=== PATIENT | female | born 1980 | race Asian ===

== ENCOUNTER 2025-02-19 01:12 | Day surgery (SDC) | payer BC, SELFPAY ==
[2025-02-06 15:07] VITALS: BMI 23.4
--- OUTSIDE RECORDS SUMMARY | 2025-02-19 01:15 | XMS_ITS | Clinical Summary ---
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 Role Phone Unavailable Primary Care Provider Unavailabl e Social History Tobacco Use Types Packs/Day Years Used Date Smoking Tobacco: Never Assessed Comments Unknown Sex and Gender Information Value Date Recorded Sex Assigned at Not on file Legal Sex Female 8:31 PM CDT Gender Identity Not on file Sexual Orientation Not on file Plan of Treatment Health Maintenance Due Date Last Done Comments Cervical Cancer Screening Pa p Smear (Age 30 to 64) Every 3 Years 1982 Annual Physical 1985 Hepatitis C 01/10/2000 DTaP, Tdap and Td Vaccines ( 1 - Tdap) 2001 Hepatitis B Vaccines (1 of 3 - 19+ 3-dose series) 2001 HPV Vaccines (1 - 3-dose SCD M series) 2009 Cervical Cancer Screening Pa p with HPV Testing (Age 30 to 64) Every 5 Years 01/10/2012 Cervical Cancer Screening with HPV 01/10/2012 Mammogram Screening 2022 COVID-19 Vaccine (2023-2 5 season) 2025 Meningococcal B Vaccine Aged Out No l onger eligible based on patient's age to complete this topic Meningococcal Vaccine Aged Out No fracisco angelica eligible based on patient's age to complete this topic Pneumococcal Vaccine: Pediat rics (0 to 5 Years) and At-Risk Patients (6 to 49 Years) Aged Out No longer eligible b ased on patient's age to complete this topic RSV Immunizations Under 20 Months Aged Out No longer eligible based on patient's age to complete this topic
--- OUTSIDE RECORDS SUMMARY | 2025-02-19 01:15 | XMS_ITS | Clinical Summary ---
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 Phone Unavailable Primary Care Provider Unavailabl e Social History Tobacco Use Types Packs/Day Years Used Date Smoking Tobacco: Never Assessed Comments Unknown Sex and Gender Information Value Date Recorded Sex Assigned at Not on file Legal Sex Female 11:58 PM CDT Gender Identity Not on file Sexual Orientation Not on file Plan of Treatment Health Maintenance Due Date Last Done Comments DTAP/TDAP/TD VACCINES (1 - Tdap) 2001 HEPATITIS B VACCINES (1 of 3 - 19+ 3-dose series) 06/2000 HPV/Cotest (21-29) 2003 HPV VACCINES (1 - 3-dose SCDM series) 2009 CERVICAL CANCER SCREENING 01/10/2012 HPV/Cotest (30-65) 01/10/2012 PAP SMEAR 01/10/2012 BREAST CANCER SCREENING 2022 INFLUENZA VACCINE (#1) 2025 Insurance [facility] BLUE ACCESS/TRUE BLUE PPO
[2025-02-19 09:08] VITALS: BP 104/69; PULSE 51; RESP 16; TEMP 36.4; O2SAT 100; BMI 23.4
[2025-02-19] MEDS: LACTATED RINGERS 1,000 ML 150 ML IV CONT (09:21)
--- NOTE | 2025-02-19 09:44 | WPDANESEPPF ---
Anes - Initial Pre Proc Eval Procedure: Operation Date: 02/19/25 10:00 Proposed Procedures p Diagnostic Colonoscopy - Satya Abreu MD Date/Time: 02/19/25 09:44 Surgeon: Satya Abreu MD Pre Op Diagnosis: Melena Patient Data Age: 45 Gender: F Height: 1.6 m Weight: 60 kg Last Vital Signs Temp 36.4 C L 02/19/25 09:08 Pulse 51 L 02/19/25 09:08 Resp 16 02/19/25 09:08 BP 104/69 02/19/25 09:08 Pulse Ox 100 02/19/25 09:08 O2 Del Method Room Air 02/19/25 09:08 Allergies Allergy/AdvReac Type Severity Reaction Status Date / Time No Known Allergies Allergy Verified 02/19/25 09:05 Home Medications ?Medication ?Instructions ?Recorded ?Confirmed ?Type escitalopram oxalate 10 mg tablet 10 mg PO DAILY 10/26/23 02/19/25 History guanfacine 2 mg tablet 2 mg PO DAILY 10/26/23 02/19/25 History hydroxyzine HCl 10 mg tablet 10 mg PO TID PRN anxiety 10/26/23 02/06/25 History tretinoin 0.05 % topical cream 1 applic topical QHS 10/26/23 02/06/25 History valacyclovir 1 gram tablet 1,000 mg PO Q12H 10/26/23 02/06/25 History cyclobenzaprine 5 mg tablet 5 mg PO DAILY PRN muscle spasms 11/14/24 02/06/25 History Patient hx anesthesia problems: none Family hx anesthesia problems: none Results Review: All pre-operative results and documents have been reviewed as part of the pre-operative evaluation. [facility] Past Medical History Medical History Acute anxiety Abnormal Pap smear of cervix 2012 Anxiety Encounter for IUD insertion mirena 02/11/2015 Surgical History Surgical History History of gynecologic surgery cyst removal from ovary and iud removal -2019 H/O breast augmentation H/O local excision of skin lesion mole remoed History of tubal ligation Family History Family History Father Diabetes mellitus Mother Diabetes mellitus Pancreas cancer Breast cancer, Onset Age: 70 Grandparent Cerebrovascular accident Social History Social History (Updated 11/14/24 @ 09:29 by Ankit Amaya MA) Smoking packs per day: 0.5 Smoking cigarettes per day: 10.0 Years smoked: 4 Smoking pack-years: 2.00 Smoking status: Former smoker Tobacco type: cigarettes Alcohol intake: current Alcohol use details: socially Substance use: never Substance use type: does not use Do You Feel Safe in your Home?: Yes Lack of Transportation: No Lack of Food: Never True Current Housing: I Have Housing Concerned About Future Housing: No Difficulty Paying Gas/Electric Bills: No Difficulty Paying for Meds: No Currently Unemployed: No Education: Bachelor's Degree Difficulty w/ Childcare or Family Care: No Living arrangements: with family Additional living arrangements comments: spouse and kids 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/Education: 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 Gender identity (if verbalized by the patient): Female Sexual Orientation (if Verbalized by the Patient): Straight or Heterosexual Spiritual care concerns: No Anes - Eval Final PreProcedure Day of Procedure 02/19/25 09:44 Patient weight: normal Heart: regular rate and rhythm Lungs: clear to auscultation and normal air movement Airway: Mallampati scale class 1 Neurological: alert and oriented Last oral intake: >/= 8 hours ASA classification: II Emergent: no Anesthetic plan: proceed Anesthesia type and monitoring: general GIVS and standard monitoring Results Review: All pre-operative results and documents have been reviewed as part of the pre-operative evaluation. Informed Consent: The patient's anesthetic plan and its attendant risks and benefits were discussed with the patient/family/POA. Questions were solicited and answers provided to the satisfaction of the patient/family/POA.
--- NOTE | 2025-02-19 09:49 | PM.HPGS ---
History of Present Illness History of Present Illness Consent: Risks, benefits, and alternatives have been discussed and questions answered. Patient agrees to proceed with procedure. Chief complaint: blood in stool Narrative: Pilar Murrell is a 45 year old female with blood in stool, last one about 8 years Review of Systems Review of Systems: All systems reviewed & are unremarkable except as noted in HPI and below PMFSH Past Medical History Medical History Acute anxiety Abnormal Pap smear of cervix 2013 Anxiety Encounter for IUD insertion mirena 02/11/2015 Surgical History Surgical History History of gynecologic surgery cyst removal from ovary and iud removal -2019 H/O breast augmentation H/O local excision of skin lesion mole remoed History of tubal ligation Family History Family History Father Diabetes mellitus Mother Diabetes mellitus Pancreas cancer Breast cancer, Onset Age: 70 Grandparent Cerebrovascular accident Social History Social History (Updated 11/14/24 @ 09:29 by Ankit Amaya MA) Smoking packs per day: 0.5 Smoking cigarettes per day: 10.0 Years smoked: 4 Smoking pack-years: 2.00 Smoking status: Former smoker Tobacco type: cigarettes Alcohol intake: current Alcohol use details: socially Substance use: never Substance use type: does not use Do You Feel Safe in your Home?: Yes Lack of Transportation: No Lack of Food: Never True Current Housing: I Have Housing Concerned About Future Housing: No Difficulty Paying Gas/Electric Bills: No Difficulty Paying for Meds: No Currently Unemployed: No Education: Bachelor's Degree Difficulty w/ Childcare or Family Care: No Living arrangements: with family Additional living arrangements comments: spouse and kids 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/Education: 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 Gender identity (if verbalized by the patient): Female Sexual Orientation (if Verbalized by the Patient): Straight or Heterosexual Spiritual care concerns: No Meds Home Medications and Allergies Home Medications ?Medication ?Instructions ?Recorded ?Confirmed ?Type escitalopram oxalate 10 mg tablet 10 mg PO DAILY 10/26/23 02/19/25 History guanfacine 2 mg tablet 2 mg PO DAILY 10/26/23 02/19/25 History hydroxyzine HCl 10 mg tablet 10 mg PO TID PRN anxiety 10/26/23 02/06/25 History tretinoin 0.05 % topical cream 1 applic topical QHS 10/26/23 02/06/25 History valacyclovir 1 gram tablet 1,000 mg PO Q12H 10/26/23 02/06/25 History cyclobenzaprine 5 mg tablet 5 mg PO DAILY PRN muscle spasms 11/14/24 02/06/25 History Allergies Allergy/AdvReac Type Severity Reaction Status Date / Time No Known Allergies Allergy Verified 02/19/25 09:05 Vital Signs Vital Signs - 24 hr 02/19/25 09:08 Temperature 97.5 F L Pulse Rate 51 L Respiratory Rate 16 Blood Pressure 104/69 Pulse Oximetry 100 Oxygen Delivery Room Air Exam Const: General: comfortable and no acute distress HENMT: Face/Nose/Sinus: Normal nares present Eyes: General: appearance normal, both eyes and all related structures Neck: Neck: no JVD Resp: Auscultation: clear to auscultation bilaterally Cardio: Rate: regular rate Rhythm: regular rhythm GI: Inspection: non-distended GI Palp: Yes Soft to palpation Skin: General skin exam: normal color Neuro: Speech: normal speech Extrem: General: normal to inspection Psych: Mental Status: mental status grossly normal Assessment and Plan Assessment and plan (1) Hematochezia: Code(s): K92.1 - Melena Status: Acute Assessment and Plan: colonoscopy
[2025-02-19 10:03] VITALS: BP 82/32; PULSE 43; RESP 19; O2SAT 100
[2025-02-19 10:04] LABS: BEDSIDEPREGUCG Negative (Negative)
[2025-02-19 10:13] VITALS: BP 91/45; PULSE 47; RESP 17; O2SAT 100
[2025-02-19 10:23] VITALS: BP 101/54; PULSE 44; RESP 17; O2SAT 100
[2025-02-19 10:33] VITALS: BP 111/61; PULSE 45; RESP 17; O2SAT 100
--- NOTE | 2025-02-19 10:38 | SUR.PHASEII ---
Pt awake but has eyes closed and complains of pain in both eyes postoperatively. Dr. Graff notified and corneal abrasion protocol ordered.
[2025-02-19 10:43] VITALS: BP 115/60; PULSE 45; RESP 12; O2SAT 100
[2025-02-19] MEDS: PROPARACAINE HCL 0.5% 15 ML OPHTH SOLN 1 DROP EACH EYE (10:43)
[2025-02-19] MEDS: DICLOFENAC SODIUM 0.1% OPHTH SOLN 2.5 ML BOTTLE 1 DROP EACH EYE (10:48)
== END 2025-02-19 11:00 | disposition home or self-care (01) ==
PROVIDERS: Referring Provider Obstetrics & Gynecology; Visit Provider Internal Medicine Gastroenterology
PROC: 0DJD8ZZ Inspection of Lower Intestinal Tract, Via Natural or Artificial Opening Endoscopic (ICD-10-PCS; CPT 45378; principal; 2025-02-19 10:00)
DX: K92.1 Melena (principal); F41.9 Anxiety disorder, unspecified; Z98.890 Other specified postprocedural states; Z98.51 Tubal ligation status; Z87.891 Personal history of nicotine dependence; Z80.0 Family history of malignant neoplasm of digestive organs; Z80.3 Family history of malignant neoplasm of breast
CPT/HCPCS: 45378; A9270; J2003; J2704; J7120